=== PATIENT | male | born 1965 | race Caucasian/White ===

== ENCOUNTER 2018-06-01 16:06 | Emergency (ER) | payer OTHER, MEDICAID ==
[2018-06-01 16:19] VITALS: BP 147/82; PULSE 68; RESP 20; TEMP 98.4; O2SAT 97
[2018-06-01] MEDS ORDERED: Tmp-Smz 800 mg-160 mg DS Tab PO STA (17:25)
--- NOTE | 2018-06-01 17:31 | C.PDOC ---
History Of Present Illness 53 y/o male presents to the ER complaining of pain to right face for 2 days. Patient states that he awoke today with large painful swollen red bump near nose. He also complains of rash to body on and off for one month. Denies fever, discharge, swelling, numbness, weakness. Time Seen by Provider: 06/01/18 17:00 Chief Complaint (Nursing): Abnormal Skin Integrity History Per: Patient History/Exam Limitations: no limitations Onset/Duration Of Symptoms: Days Current Symptoms Are (Timing): Still Present Severity: Moderate Past Medical History Reviewed: Historical Data, Nursing Documentation, Vital Signs Vital Signs: Last Vital Signs Temp 98.4 F 06/01/18 16:17 Pulse 68 06/01/18 16:17 Resp 20 06/01/18 16:17 BP 147/82 06/01/18 16:17 Pulse Ox 97 06/01/18 16:17 - Medical History PMH: Back Problems Surgical History: No Surg Hx - [facility] Procedures OTHER SKIN & SUBQ I D (08/25/14) Family History: States: No Known Family Hx - Social History Hx Tobacco Use: No Hx Alcohol Use: No Hx Substance Use: No - Immunization History Hx Tetanus Toxoid Vaccination: No Hx Influenza Vaccination: No Hx Pneumococcal Vaccination: No Review Of Systems Except As Marked, All Systems Reviewed And Found Negative. Constitutional: Negative for: Fever, Chills Musculoskeletal: Positive for: Other (facial pain) Neurological: Negative for: Weakness, Numbness Physical Exam - Physical Exam Appears: Non-toxic, No Acute Distress Skin: Warm, Dry, Rash (dry scaly patches scattered to body right side of neck, 1 patch on right side of flank, 1 patch to anterior left leg), Other (1 x 0.5 cm fluctuant erythematous mass to right side upper nose near eye, tender to palpation) Head: Atraumatic, Normacephalic Eye(s): bilateral: Normal Inspection Nose: Normal Oral Mucosa: Moist Neck: Supple Chest: Symmetrical Neurological/Psych: Oriented x3, Normal Speech ED Course And Treatment O2 Sat by Pulse Oximetry: 97 (RA) Pulse Ox Interpretation: Normal Medical Decision Making Medical Decision Making: Impression: dermatitis and abscess to face Progress: Using 23 gauge needle aspirate the mass and purulent material expressed. Wound culture obtained. Area cleansed. Patient treated with Bactrim DS. Advise to have wound checked in few days. Recommend cream for rash Disposition Counseled Patient/Family Regarding: Diagnosis, Need For Followup, Rx Given - Disposition Referrals: Delma Akins MD [Medical Doctor] - Disposition: HOME/ ROUTINE Disposition Time: 17:32 Condition: GOOD Additional Instructions: aplicar crema a la damián patrick medicament[facility] dos veces al karin Prescriptions: Sulfamethoxazole/Trimethoprim [Bactrim DS 800 mg-160 mg] 1 tab PO BID #14 tab Triamcinolone 0.1% [Triamcinolone 0.1% Cream] 0.1 cre TP BID #1 tube Instructions: Boil (DC), Eczema (Atopic Dermatitis) (DC) Print Language: GEORGIAN - POA Present On Arrival: None - Clinical Impression Clinical Impression: Abscess of face, Dermatitis - PA / ELECTRICAL ELECTRONICS TECHNICIAN / Resident Statement MD/DO has reviewed & agrees with the documentation as recorded. - Scribe Statement The provider has reviewed the documentation as recorded by the Cecilia Veliz Provider Attestation All medical record entries made by the Victor Hugoibe were at my direction and personally dictated by me. I have reviewed the chart and agree that the record accurately reflects my personal performance of the history, physical exam, medical decision making, and the department course for this patient. I have also personally directed, reviewed, and agree with the discharge instructions and disposition.
[2018-06-01] MEDS ORDERED: Tmp-Smz 800 mg-160 mg DS Tab ONE (17:43)
== END 2018-06-01 17:51 | disposition home or self-care (01) ==
LOC: C.ER 16:06
DX: L02.01 Cutaneous abscess of face (principal); L30.9 Dermatitis, unspecified

== ENCOUNTER 2018-07-16 18:04 | Emergency (ER) | payer OTHER, MEDICAID ==
[2018-07-16 18:24] VITALS: BP 149/88; PULSE 88; RESP 18; TEMP 99.1; O2SAT 96
--- NOTE | 2018-07-16 18:55 | C.PDOC ---
History Of Present Illness 53 year old male with chronic lower back pain presents to the emergency department with complaints of pain to his upper back for the last four days. Patient states that his back hurts when he moves and breaths. He denies shortness of breath, fever, cough, and chills. He denies taking pain medications. 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 Time Seen by Provider: 07/16/18 18:38 Chief Complaint (Nursing): Back Pain History Per: Patient History/Exam Limitations: no limitations Onset/Duration Of Symptoms: Days (4) Current Symptoms Are (Timing): Still Present Quality Of Discomfort: "Pain" Previous Symptoms: Back Pain, Chronic Pain Associated Symptoms: None. denies: Incontinence, New Weakness Exacerbating Factor(s): Movement, Other (breathing) Past Medical History Reviewed: Historical Data, Nursing Documentation, Vital Signs Vital Signs: Last Vital Signs Temp 99.1 F 07/16/18 18:19 Pulse 88 07/16/18 18:19 Resp 18 07/16/18 18:19 BP 149/88 07/16/18 18:19 Pulse Ox 96 07/16/18 18:19 - Medical History PMH: Back Problems Surgical History: No Surg Hx - [facility] Procedures OTHER SKIN & SUBQ I D (08/25/14) Family History: States: No Known Family Hx, Unknown Family Hx - Social History Hx Tobacco Use: No Hx Alcohol Use: No Hx Substance Use: No - Immunization History Hx Tetanus Toxoid Vaccination: No Hx Influenza Vaccination: No Hx Pneumococcal Vaccination: No Review Of Systems Except As Marked, All Systems Reviewed And Found Negative. Constitutional: Negative for: Fever, Chills Respiratory: Negative for: Cough Musculoskeletal: Positive for: Back Pain (left upper back) Physical Exam - Physical Exam Appears: Non-toxic, No Acute Distress Skin: Normal Color, Warm, Dry Head: Atraumatic, Normacephalic Eye(s): bilateral: Normal Inspection, PERRL, EOMI Nose: Normal Neck: Normal, No Midline Cervical Tenderness, No Paracervical Tenderness, Supple Chest: Symmetrical, No Tenderness Back: Other (point tenderness at the left upper rhomboid) Neurological/Psych: Oriented x3, Normal Speech, Normal Cognition ED Course And Treatment O2 Sat by Pulse Oximetry: 96 (RA) Pulse Ox Interpretation: Normal Medical Decision Making Medical Decision Making: Plan: Flexeril 5mg PO Tylenol 975mg PO Disposition Counseled Patient/Family Regarding: Diagnosis, Need For Followup - Disposition Disposition: HOSPITALIZED Disposition Time: 18:53 Condition: STABLE Additional Instructions: JAY EDMONDSON, thank you for letting us take care of you today. Your provider was Sonal Franklin MD and you were treated for BACK PAIN. The emergency medical care you received today was directed at your acute symptoms. If you were prescribed any medication, please fill it and take as directed. It may take several days for your symptoms to resolve. Return to the Emergency Department if your symptoms worsen, do not improve, or if you have any other problems. Please contact your doctor in 1-2 days for a follow up appointment. Bring any paperwork you were given at discharge with you along with any medications you are taking to your follow up visit. Our treatment cannot replace ongoing medical care by a primary care provider outside of the emergency department. Thank you for allowing the [facility] team to be part of your care today. If you had an X-Ray or CT scan: A Radiologist will review the ED reading if any change in treatment is needed we will contact you. If you had a blood, urine, or wound culture: It will take several days for the results, if any change in treatment is needed we will contact you. If you had an STI test: It will take 48 hours for the results. Please call after 1 week if you have not heard back. Prescriptions: Cyclobenzaprine [Flexeril] 5 mg PO TID PRN #20 tab PRN Reason: Muscle Spasm Instructions: Muscle Strain (DC) Forms: Gen Discharge Inst Greenlandic, [facility] (Greenlandic) Print Language: ESTONIAN - POA Present On Arrival: None - Clinical Impression Clinical Impression: Muscle strain - Scribe Statement The provider has reviewed the documentation as recorded by the Scribe (Jose Reyesqvi) Provider Attestation: All medical record entries made by the Scribe were at my direction and personally dictated by me. I have reviewed the chart and agree that the record accurately reflects my personal performance of the history, physical exam, medical decision making, and the department course for this patient. I have also personally directed, reviewed, and agree with the discharge instructions and disposition.
== END 2018-07-16 18:57 | disposition short-term general hospital (02) ==
LOC: C.ER 18:04
DX: S29.012A Strain of muscle and tendon of back wall of thorax, initial encounter (principal); X58.XXXA Exposure to other specified factors, initial encounter